=== PATIENT | female | born 1995 | race Caucasian/White ===

== ENCOUNTER 2025-05-24 10:44 | Emergency (ER) | payer MEDICAID ==
[~2025-05-24] VITALS: Ht 175.3 cm; Wt 81.8 kg
[~2025-05-24 10:44] MED LIST: NITR-104 PO; OXYC10TA59 PO; PRENATAL ONE T1 EACH
[2025-05-24 10:50] VITALS: TEMP 97.5
[2025-05-24 11:16] LABS: PLATELET COUNT (AUTO) 256 K/uL (150-450); RED BLOOD CELL COUNT(AUTO) 4.75 MIL/uL (4.00-5.20); RED CELL DISTRIBUTION WIDTH 12.8 % (11.5-14.5); WHITE BLOOD COUNT (AUTO) 7.7 K/uL (4.5-11.0)
[2025-05-24 11:30] LABS: CALCIUM, TOTAL 8.5 mg/dL (8.8-10.5); CREATININE 0.74 mg/dL (0.60-1.30); GLOMERULAR FILTR. RATE CALC > 60 mL/min (>60); GLUCOSE,RANDOM 98 mg/dL (70-110); SODIUM SERUM 137 mmol/L (136-145); UREA NITROGEN, BLOOD 10 mg/dL (7-18)
[2025-05-24 11:50] LABS: HCG,QUANTITATIVE 51055 mIU/mL (0-6)
[2025-05-24] MEDS: DOXYLAMINE SUCCINATE 25 MG TABLET PO ONE (12:36)
[2025-05-24] MEDS: PYRIDOXINE HCL 50 MG TABLET PO ONE (12:36)
[2025-05-24] MEDS: SODIUM CHLORIDE 0.9% 1,000 ML IV ONE (13:18)
[2025-05-24 15:25] LABS: APPEARANCE,URINE HAZY (CLEAR); GLUCOSE, URINE (UA) NEGATIVE (NEGATIVE); LEUKOCYTE ESTERASE ,URINE TRACE (NEGATIVE); NITRATE,URINE POSITIVE (NEGATIVE); OCCULT BLOOD,URINE NEGATIVE (NEGATIVE); SPECIFIC GRAVITIY, URINE 1.025 (1.003-1.030)
[2025-05-24] MEDS ORDERED: DOXY1TAB3 PO (15:30)
[2025-05-24] MEDS ORDERED: CEPH-558 PO (15:36)
[2025-05-24 15:37] VITALS: BP 101/66; PULSE 64; RESP 18; O2SAT 100
[2025-05-24 16:10] LABS: SQUAMOUS EPITHELIAL CELL,UR Few /LPF (None Seen)
== END 2025-05-24 16:10 | disposition home or self-care (01) ==
LOC: EMS 10:44
DX: O23.41 Unspecified infection of urinary tract in pregnancy, first trimester (principal); O21.0 Mild hyperemesis gravidarum; N39.0 Urinary tract infection, site not specified; R10.2 Pelvic and perineal pain; F12.90 Cannabis use, unspecified, uncomplicated; F17.210 Nicotine dependence, cigarettes, uncomplicated; Z3A.01 Less than 8 weeks gestation of pregnancy
CPT/HCPCS: 99284; 96360; 76801; 80048; 81001; 83690; 84702; 85025; 87077; 87086; 36415; J7030; 87186